=== PATIENT | female | born 1990 | race Caucasian/White ===

== ENCOUNTER 2021-10-22 16:23 | Emergency (ER) | payer OTHER, SELFPAY ==
[2021-10-22] VITALS (26 sets, daily range): BP systolic 100–130; BP diastolic 63–92; PULSE 59–82; RESP 10–21; TEMP 36.4–36.8; O2SAT 95–100
--- NOTE | ~2021-10-22 | XR_ITS ---
EXAMINATION: XR chest 2V DATE: 10/22/2021 19:00 INDICATION: Chest pain TECHNIQUE: PA and lateral views of the chest are obtained. COMPARISON: None available FINDINGS: The lungs are free of acute opacities. There is no pleural effusion or pneumothorax. The ca rdiomediastinal silhouette is normal. The visualized bones and soft tissues are unremarkable. IMPRESSION: 1. No acute cardiopulmonary abnormality. Reviewed, dictated and finalized at location F.
--- NOTE | ~2021-10-22 | CT_ITS ---
EXAMINATION: CT brain wo con INDICATION: Headache COMPARISON: None TECHNIQUE: Standard unenhanced head CT. The dose-length product (DLP) was 605.33 mGy-cm. The mA was a djusted according to patient size. Iterative reconstruction technique was employed. FINDINGS: There is no intracranial hemorrhage, acute infarction, or abnormal mass lesion. The ventric les are normal. There is no abnormal mass effect or midline shift. The bingham-white matter differentiat ion is normal. The basal cisterns are patent. The orbits are normal. The paranasal sinuses, mastoids and calvarium are normal. IMPRESSION: 1. No acute intracranial abnormality. Reviewed, dictated and finalized at location F.
--- NOTE | 2021-10-22 17:03 | ECG_ITS ---
Measurements Intervals [place] Rate: 66 P: 15 MD: 151 QRS: 15 QRSD: 87 T: 1 QT: 362 QTc: 382 Interpretive Statements SINUS RHYTHM NONSPECIFIC T-WAVE ABNORMALITY NO PREVIOUS ECG AVAILABLE FOR COMPARISON Electronically Signed On 10-22-2021 21:41:01 CDT by Tayo York M.D.
[2021-10-22 17:29] LABS: Basophils Percent Auto 0.4 % (0.2-1.2); Eosinophils Absolute Auto 0.1 K/mm3 (0-0.3); Eosinophils Percent Auto 1.4 % (0-4.4); Hematocrit 37.1 % (37.0-47.0); Hemoglobin 12.4 g/dL (12.0-15.0); Immature Granulocyte Absolute 0.01 K/mm3 (0.00-0.031); Immature Granulocyte Percent A 0.1 % (0-0.5); Lymphocytes Absolute Auto 2.54 K/mm3 (0.9-3.2); Lymphocytes Percent Auto 34.3 % (18.3-44.2); Mean Corpuscular HGB Conc 33.4 g/dl (32-36); Mean Corpuscular Hemoglobin 30.5 pg (26-34); Mean Corpuscular Volume 91.4 fl (80-100); Mean Platelet Volume 8.6 fl (7.4-10.4); Monocytes Absolute Auto 0.5 K/mm3 (0.1-0.6); Neutrophils Absolute Auto 4.2 K/mm3 (1.3-6.7); Neutrophils Percent Auto 56.8 % (45.5-73.1); Platelet Count Result 340 k/mm3 (150-375); Red Blood Count 4.06 M/mm3 (4.2-5.4); Red Cell Distribution Width 12.2 % (11.5-14.5); White Blood Count 7.4 K/mm3 (4.5-10.0)
[2021-10-22 17:31] LABS: Alanine Aminotransferase 30 U/L (6-35); Albumin Level 4.3 g/dL (3.5-5.1); Alkaline Phosphatase 66 U/L (38-126); Anion Gap 6 mmol/L (8-16); Aspartate Amino Transferase 25 U/L (14-36); Bilirubin,Total 0.2 mg/dL (0.2-1.3); Blood Urea Nitrogen 11 mg/dL (7-17); Calcium 9.5 mg/dL (8.4-10.2); Carbon Dioxide 29 mmol/L (22-30); Chloride 104 mmol/L (98-107); Estimated CRCL calculation 85 ml/min; Estimated Glomerular Filt Rate > 60; Glucose 91 mg/dL (65-110); Potassium 3.8 mmol/L (3.4-5.0); Sodium 139 mmol/L (137-145)
--- NOTE | 2021-10-22 18:56 | PC.NURSE ---
called lab and spoke with Aureliano to add on MG Trop 1 baseline PT INR PTT D [place] - [place] [id number]
[2021-10-22 19:19] LABS: Troponin I < 0.012 ng/mL (0.000-0.034)
[2021-10-22 19:54] LABS: INR 1.1; Prothrombin Time 13.6 Seconds (11.1-14.7)
--- NOTE | 2021-10-22 19:56 | ED.DIZZY ---
HPI - Dizziness General Chief Complaint: Syncope Stated Complaint: lightheaded/L-side numbness Time Seen by Provider: 10/22/21 18:07 Source: patient and RN notes reviewed Mode of arrival: ambulatory Limitations: no limitations History of Present Illness HPI Narrative: This is a 31 year old female who presents for evaluation of dizziness. Patient reports having intermittent episodes of dizziness 6-9 months. 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 She suddenly felt dizziness like she was going to pass out. She also reports she felt foggy in the head. She also reports having tightness to left neck and left shoulder . She also reports midsternal chest tightness. She also reported having left side headache that has resolved. She reports her symptoms have resolved except she feels foggy still. MD elicited complaint: dizziness and lightheadedness Review of Systems Review of Systems: All systems reviewed & are unremarkable except as noted in HPI and below Eyes: Eyes: Denies change in vision and Denies photophobia ENT: Reports dizziness and Denies nasal congestion Cardiovascular: Cardiovascular: Reports chest pain, Denies radiating jaw, neck or arm pain and Denies slow heart rate Respiratory: Respiratory: Denies chest congestion, Denies cough, Denies dyspnea and Denies wheezing Gastrointestinal: Gastrointestinal: Denies abdominal pain, Denies bloating, Denies nausea and Denies vomiting Neurologic: Reports dizziness and Reports headache(s) PMFSH Past Medical History Medical History (Updated 10/22/21 @ 21:26 by Teressa Oscar MD) Patient denies medical problems Surgical History Surgical History (Updated 10/22/21 @ 19:57 by Teressa Oscar MD) No pertinent past surgical history Social History Social History (Updated 10/22/21 @ 19:57 by Teressa Oscar MD) Smoking status: Current every day smoker Tobacco type: e-cigarettes/vaping Exam Narrative: GENERAL: Well-appearing, well-nourished, and in no acute distress. HEAD: Normocephalic, atraumatic EYES: PERRLA and EOMI, conjunctiva clear without discharge EARS: TM's clear bilaterally without erythema or dullness NOSE: Nares clear, no rhinorrhea or epistaxis THROAT:Mucous membranes moist, Oropharynx normal without erythema, exudate, peritonsillar swelling or fluctuance NECK: Supple, without lymphadenopathy or mass RESPIRATORY: No respiratory distress, Airway patent, Respirations non-labored, Clear to auscultation without rales, rhonchi or wheeze HEART: Regular rate and rhythm. No murmur heard. Normal peripheral pulses. ABDOMEN: Soft, nontender, nondistended, normal active bowel sounds. No masses. No rebound or guarding, No organomegaly. EXTREMITIES: No edema, normal strength with full range of motion. SKIN: Warm, dry, normal color without rash NEURO: Alert and oriented x3. CN 2-12 grossly intact. No focal deficits. PSYCH: Normal mood and affect. Course Reevaluation(s) Reevaluation #1: I discussed that test are unremarkable at this time. Her symptoms may be multifactorial . She may need further evaluation of her intermittent dizziness. She may have developed atypical chest pain from anxiety. She understands she will need follow up with PCP at this time. Date: 10/22/21 Time: 20:42 Vital Signs Vital signs: Vital Signs Temperature 98.0 F 10/22/21 16:57 Pulse Rate 79 10/22/21 16:57 Respiratory Rate 16 10/22/21 16:57 Blood Pressure 130/92 H 10/22/21 16:57 Pulse Oximetry 99 10/22/21 16:57 Temperature 98.3 F 10/22/21 18:07 Pulse Rate 65 10/22/21 19:45 Respiratory Rate 13 10/22/21 19:45 Blood Pressure 109/76 10/22/21 18:46 Pulse Oximetry 99 10/22/21 19:45 MDM - Dizziness Differential Diagnosis Differential diagnosis: Likely benign paroxysmal positional vertigo, orthostatic hypotension, cerebrovascular accident, acute vestibular neuronitis, transient cerebral isch
[2021-10-22 20:00] LABS: Amphetamine Screen Urine Negative (Negative); Barbiturate Screen Urine Negative (Negative); Benzodiazepines Screen Urine Negative (Negative); Cannabinoid Screen Urine Negative (Negative); Cocaine Screen Urine Negative (Negative); Methadone Screen Urine Negative (Negative); Opiate Screen Urine Negative (Negative); Phencyclidine Screen Urine Negative (Negative)
[2021-10-22 20:13] LABS: Appearance Urine Clear (Clear); Bilirubin Urine Negative (Negative); Blood Urine Negative (Negative); Glucose Urine UA Negative (Negative); Ketones Urine Negative (Negative); Leukocyte Esterase Ur Negative LEU/UL (Negative); Nitrate Urine Negative (Negative); Protein Urine Negative (Negative); Urobilinogen Urine 0.2 mg/dL (<2.0)
[2021-10-22 20:15] LABS: Add Urine Microscopic? NO; Color Urine Light Yellow (Yellow)
[2021-10-22 20:23] LABS: D Dimer < 0.27 ug/mL (<0.48)
[2021-10-22 21:10] LABS: Troponin I < 0.012 ng/mL (0.000-0.034)
== END 2021-10-22 21:32 | disposition home or self-care (01) ==
PROVIDERS: Emergency Medicine; Emergency Provider General Practice; PCP Registered Nurse
DX: R55 Syncope and collapse (principal); R07.89 Other chest pain; R94.31 Abnormal electrocardiogram [ECG] [EKG]
CPT/HCPCS: 36415; 70450; 71046; 80053; 80307; 81003; 81025; 83735; 84484; 85025; 85380; 85610; 85730; 93005; 99284

== ENCOUNTER 2023-01-22 17:53 | Emergency (ER) | payer OTHER, SELFPAY ==
--- NOTE | 2023-01-22 17:57 | ED.URI ---
HPI - URI/Sore Throat General Chief Complaint: Upper Respiratory Infection Stated Complaint: Cough;Headache Time Seen by Provider: 01/22/23 17:57 Source: patient, RN notes reviewed and old records reviewed Mode of arrival: ambulatory Limitations: no limitations History of Present Illness HPI Narrative: 32-year-old female presents to the [facility] with complaints of cough, congestion, headache that started yesterday morning. Low-grade fevers of 99. Has taken ibuprofen today. Took 1 dose of Mucinex. Related Data Home Medications Medication Instructions Recorded Confirmed No Home Medications 01/22/23 01/22/23 Allergies Allergy/AdvReac Type Severity Reaction Status Date / Time No Known Allergies Allergy Verified 01/22/23 17:58 Review of Systems Review of Systems: All systems reviewed & are unremarkable except as noted in HPI and below Constitutional: Constitutional: Reports no additional constitutional complaints Eyes: Eyes: Reports no additional eye complaints ENT: Reports as per HPI Cardiovascular: Cardiovascular: Reports no additional cardiovascular complaints, Denies chest pain and Denies dyspnea Respiratory: Respiratory: Reports no additional respiratory complaints, Denies chest congestion, Denies cough and Denies dyspnea Gastrointestinal: Gastrointestinal: Reports no additional gastrointestinal complaints, Denies abdominal pain, Denies nausea and Denies vomiting Musculoskeletal: Musculoskeletal: Reports no additional musculoskeletal complaints Integumentary/Breasts: Skin/Breast: Reports system reviewed and no additional complaints, except as docu Neurologic: Reports system reviewed and no additional complaints, except as documented Psychiatric: Psychiatric: Reports no additional psychiatric complaints Allergic/Immunologic: Allergic/Immunologic: Reports no additional allergic/immunologic complaints PMFSH Past Medical History Medical History Patient denies medical problems Surgical History Surgical History No pertinent past surgical history Social History Social History Smoking status: Current every day smoker Tobacco type: e-cigarettes/vaping Comments At the time of my signature, I reviewed and agree with the nursing past medical, surgical, social, and family history. There is no relevant family history pertinent to the patient complaint. Exam Const: General: cooperative, healthy appearing, comfortable, no acute distress, well developed, alert and well nourished Nutritional Appearance: well nourished Orientation/consciousness: patient oriented x3 Limitations: no limitations HENMT: Head: normal to inspection Ears: hearing grossly normal bilaterally, external ears normal, TM's normal bilaterally and EAC's normal Face/Nose/Sinus: Normal external nose present, Normal nares present, Normal nasal mucous membranes and turbinates present and normal facial exam Face and sinus: normal facial exam, sinuses nontender and face symmetric Mouth: Yes Normal oral and palatal mucosa present, Yes lip normal and Yes moist mucous membranes Throat: posterior oropharynx normal, uvula midline and postnasal drainage Eyes: General: appearance normal, both eyes and all related structures Alignment and Position: alignment normal Periorbital: periorbital findings normal Pupils: Equal, round and reactive pupils present EOM: EOMs intact bilaterally Neck: Neck: normal visual inspection, full ROM, no lymphadenopathy and no meningeal signs Chest: Chest palpation & inspection: normal inspection of the chest Resp: Effort & Inspection: normal respiratory effort and able to speak in complete sentences Auscultation: clear to auscultation bilaterally, no crackles, no rales, no rhonchi and no wheezes Cardio: Rate: regular rate Rhythm: regular rhythm Back/
[2023-01-22 18:04] VITALS: BP 121/82; PULSE 84; RESP 16; TEMP 36.4; O2SAT 100
== END 2023-01-22 18:32 | disposition home or self-care (01) ==
PROVIDERS: Emergency Provider Nurse Practitioner; PCP Registered Nurse
DX: J06.9 Acute upper respiratory infection, unspecified (principal); F17.290 Nicotine dependence, other tobacco product, uncomplicated; Z20.822 Contact with and (suspected) exposure to COVID-19
CPT/HCPCS: 87426; 87804; 99213; C9803; G0463

== ENCOUNTER 2023-05-13 08:09 | Emergency (ER) | payer OTHER, SELFPAY ==
[2023-05-13 08:18] VITALS: BP 117/65; PULSE 104; RESP 18; TEMP 36.8; O2SAT 100
--- NOTE | 2023-05-13 08:21 | ED.URI ---
HPI - URI/Sore Throat General Chief Complaint: Upper Respiratory Infection Stated Complaint: body aches Time Seen by Provider: 05/13/23 08:20 Source: patient Mode of arrival: ambulatory Limitations: no limitations History of Present Illness HPI Narrative: Janet is a 32-year-old female patient presenting to the clinic today with complaints of body aches, chills, fever, nasal congestion, and bilateral ear pain that started at 3:00 a.m. this morning. Temperature was as high as 100.5? F. elicited complaint: sore throat and nasal congestion Related Data Home Medications Medication Instructions Recorded Confirmed No Home Medications 01/22/23 05/13/23 Allergies Allergy/AdvReac Type Severity Reaction Status Date / Time No Known Allergies Allergy Verified 05/13/23 08:31 Review of Systems Review of Systems: Pertinent positives per HPI. Patient denies any rash, headache, visual changes, dizziness, shortness of breath, chest pain, palpitations, nausea, vomiting, diarrhea, constipation, abdominal pain, or any urinary issues. PMFSH Past Medical History Medical History Patient denies medical problems Surgical History Surgical History No pertinent past surgical history Social History Social History Smoking status: Current every day smoker Tobacco type: e-cigarettes/vaping Comments At the time of my signature, I reviewed and agree with the nursing past medical, surgical, social, and family history. There is no relevant family history pertinent to the patient complaint. Exam Narrative: General: Well-developed, well nourished, in no apparent distress Head: Normocephalic, atraumatic Eyes: Pupils equally round and reactive to light bilaterally, EOM intact, sclera and conjunctive clear, no discharge, lids normal Ears: TMs intact and clear, ear canals clear, no drainage, grossly hearing normal. Nose: Nares patent, clear nasal discharge, no inflammation, no sinus tenderness. Mouth: Oral pharynx without lesions or masses, good dentition, MMM. Neck: Supple, trachea midline, no enlargement of anterior or posterior cervical nodes, no thyroid masses or goiter palpable. Cardio: Regular rate and rhythm, s1 and s2 normal, no murmur appreciated. Resp: Clear to auscultation bilaterally, no rhonchi, rales, wheezing or rubs Course Course Emergency Course: Portions of this record may have been created with voice recognition software. Level of Care: Express Care Visit Vital Signs Vital signs: Vital Signs Temperature 36.8 C 05/13/23 08:18 Pulse Rate 104 H 05/13/23 08:18 Respiratory Rate 18 05/13/23 08:18 Blood Pressure 117/65 05/13/23 08:18 Pulse Oximetry 100 05/13/23 08:18 Oxygen Delivery Room Air 05/13/23 08:18 Temperature 36.8 C 05/13/23 08:18 Pulse Rate 104 H 05/13/23 08:18 Respiratory Rate 18 05/13/23 08:18 Blood Pressure 117/65 05/13/23 08:18 Pulse Oximetry 100 05/13/23 08:18 Oxygen Delivery Room Air 05/13/23 08:18 Vital signs reviewed MDM - URI/Sore Throat MDM Narrative Medical decision making narrative: At the time of visit patient is resting comfortably on the exam table. Patient appears to be nontoxic. COVID testing was positive. Influenza testing was negative. Supportive measures were discussed with the patient and they voiced understanding discharge instructions and agrees to treatment plan. Return precautions reviewed Differential Diagnosis Differential diagnosis: Likely upper respiratory infection, otitis media, sinusitis, viral infection, bronchitis, influenza, pharyngitis and other (COVID) Discharge Plan Discharge Clinical Impression: COVID-19 Patient Disposition: Home, Self-Care Condition: Stable Instructions: Antibiotic Form, COVID-19 (Coronavirus Dise
== END 2023-05-13 08:50 | disposition home or self-care (01) ==
PROVIDERS: Emergency Provider Nurse Practitioner Family; PCP Registered Nurse
DX: U07.1 COVID-19 (principal); F17.290 Nicotine dependence, other tobacco product, uncomplicated
CPT/HCPCS: 87426; 87804; 99213; C9803; G0463

== ENCOUNTER 2024-02-29 16:08 | Emergency (ER) | payer OTHER, SELFPAY ==
--- NOTE | 2024-02-29 16:10 | ED.FEMALEGU ---
HPI - Female Genitourinary General Chief complaint: Urogenital-Female Stated complaint: UTI Time Seen by Provider: 02/29/24 16:09 Source: patient Mode of arrival: ambulatory Limitations: no limitations History of Present Illness HPI Narrative: Janet is a 33-year-old female patient presenting to the clinic today with complaints possible UTI. She reports over the past few days she has had some burning, urgency, and frequency with urination. She also reports over the last couple weeks she has had foul smelling and cloudy urine. Is also complaining of some nausea and abdominal cramping. Denies any back pain, fevers, or chills. Related Data Home Medications Medication Instructions Recorded Confirmed buspirone 10 mg tablet 30 mg PO DAILY 02/29/24 02/29/24 Allergies Allergy/AdvReac Type Severity Reaction Status Date / Time No Known Allergies Allergy Verified 02/29/24 16:10 Review of Systems Review of Systems: Pertinent positives per HPI. Patient denies any fever, chills, rash, headache, visual changes, dizziness, cough, runny nose, sore throat, shortness of breath, chest pain, palpitations,vomiting, diarrhea, constipation, PMFSH Past Medical History Medical History Patient denies medical problems Surgical History Surgical History No pertinent past surgical history Social History Social History Smoking status: Current every day smoker Tobacco type: e-cigarettes/vaping Comments At the time of my signature, I reviewed and agree with the nursing past medical, surgical, social, and family history. There is no relevant family history pertinent to the patient complaint. Exam Narrative: General: Well-developed, well nourished, in no apparent distress. Head: Normocephalic, atraumatic. Cardio: Regular rate and rhythm, s1 and s2 normal, no murmur appreciated. Resp: Clear to auscultation bilaterally, no rhonchi, rales, wheezing or rubs. Abdomen: Soft, pliable, bowel sounds present in all quadrants, suprapubic-tender to palpation, no organomegly, no CVAT tenderness. Course Course Emergency Course: Portions of this record may have been created with voice recognition software. Level of Care: Express Care Visit Vital Signs Vital signs: Vital signs reviewed MDM - Female Genitourinary MDM Narrative Medical decision making narrative: At the time of visit patient is resting comfortably on the exam table. Patient appears to be nontoxic. Labs: Urinalysis positive for nitrates and leukocytes. We will send for culture. Plan: I suspect patient has urinary tract infection. Prescription for Bactrim DS was sent to the pharmacy. Supportive measures were discussed with the patient and they voiced understanding discharge instructions and agrees to treatment plan. Return precautions reviewed Differential Diagnosis Differential diagnosis: Likely urinary tract infection and cystitis Discharge Plan Discharge Clinical Impression: Urinary tract infection Qualifiers: Urinary tract infection type: acute cystitis Hematuria presence: without hematuria Qualified Code(s): N30.00 - Acute cystitis without hematuria Patient Disposition: Home, Self-Care Condition: Stable Instructions: Antibiotic Form, Urinary Tract Infection in Women (ED) Additional Instructions: Urinalysis positive for bacteria and nitrates. We will send urine for culture. Take Bactrim as prescribed Increase fluids and stay well hydrated Wipe front to back. May use wet wipes. Avoid tub baths If sexually active- pee before and after intercourse. Wear cotton panties Avoid tight clothing up against the genitals Follow up with your PCP in 1 week if symptoms persist. Prescriptions: New sulfamethoxazole-trimethoprim [Bactrim DS] 800-160 mg tablet
[2024-02-29 16:16] VITALS: BP 117/68; PULSE 77; RESP 16; TEMP 36.9; O2SAT 100
[2024-02-29 16:24] LABS: EDUAAPPEAR Cloudy; EDUABILI Negative (Negative); EDUABLOOD Negative (Negative); EDUACOLOR1 Yellow; EDUAGLUCOSE Negative (Negative); EDUAKETONE Negative (Negative); EDUALEUKO Trace (Negative); EDUANITRATE Positive (Negative); EDUAPROTEIN Negative (Negative); EDUASPGRAVITY 1.025; EDUAUROBILI 0.2
== END 2024-02-29 16:27 | disposition home or self-care (01) ==
PROVIDERS: Emergency Provider Nurse Practitioner Family; PCP Registered Nurse
DX: N30.00 Acute cystitis without hematuria (principal); B96.20 Unspecified Escherichia coli [E. coli] as the cause of diseases classified elsewhere; F17.290 Nicotine dependence, other tobacco product, uncomplicated
CPT/HCPCS: 81003; 87077; 87086; 87186; 99213; G0463

== ENCOUNTER 2024-04-24 17:02 | Emergency (ER) | payer OTHER, SELFPAY ==
--- NOTE | 2024-04-24 17:08 | ED_ITS ---
HPI - URI/Sore Throat General Chief Complaint: Upper Respiratory Infection Stated Complaint: fever and cough Time Seen by Provider: 04/24/24 17:08 Source: patient Mode of arrival: ambulatory Limitations: no limitations History of Present Illness HPI Narrative: Patient is a 33-year-old female who presents with fever and cough for a week. Patient van cellphone day for for COVID flu and both were negative. Patient has been taking [id number] medication with no relief. Fever was stain under 101. But today it was 102.5. Denies any nausea, vomiting, diarrhea, sore throat. Related Data Home Medications Medication Instructions Recorded Confirmed buspirone 10 mg tablet 30 mg PO DAILY 02/29/24 02/29/24 Allergies Allergy/AdvReac Type Severity Reaction Status Date / Time No Known Allergies Allergy Verified 04/24/24 17:41 Review of Systems Review of Systems: All systems reviewed & are unremarkable except as noted in HPI and below Constitutional: Constitutional: Denies body ache(s), Denies chills, Denies fatigue, Reports fever(s), Denies headache(s), Denies malaise and Denies weakness Eyes: Eyes: Denies blurry vision, Denies itchy eyes and Denies loss of vision ENT: Denies otalgia, Denies headache(s), Denies nasal congestion, Denies sinus pain and Denies sore throat Cardiovascular: Cardiovascular: Denies chest pain, Denies irregular heart rhythm and Denies dyspnea Respiratory: Respiratory: Reports cough and Denies dyspnea Gastrointestinal: Gastrointestinal: Denies abdominal pain, Denies diarrhea, Denies nausea and Denies vomiting Musculoskeletal: Musculoskeletal: Denies back pain, Denies myalgias and Denies arthralgias Integumentary/Breasts: Skin/Breast: Denies pruritus and Denies rash Neurologic: Denies headache(s), Denies loss of vision and Denies weakness Psychiatric: Psychiatric: Reports no additional psychiatric complaints Endocrine: Endocrine: Denies fatigue Allergic/Immunologic: Allergic/Immunologic: Denies itchy eyes PMFSH Past Medical History Medical History Patient denies medical problems Surgical History Surgical History No pertinent past surgical history Social History Social History Smoking status: Current every day smoker Tobacco type: e-cigarettes/vaping Comments At time of signature, agree with nursing past medical, surgical, social and family history. There is no relevant family history pertinent to the presenting complaint. Exam Const: General: cooperative, healthy appearing, comfortable, no acute distress and well nourished Nutritional Appearance: well nourished Orientation/consciousness: patient oriented x3 Limitations: no limitations HENMT: Head: normal to inspection, normocephalic and atraumatic Ears: hearing grossly normal bilaterally, external ears normal, TM's normal bilaterally, EAC's normal and no periauricular adenopathy Face/Nose/Sinus: Normal external nose present, Abnormal mucous membranes and turbinates present erythematous bilateral and diffuse, normal facial exam, sinuses nontender and face symmetric Face and sinus: normal facial exam, sinuses nontender and face symmetric Mouth: Yes Normal oral and palatal mucosa present, Yes lip normal, Yes tongue normal, Yes Normal salivary glands and ducts present, Yes oropharynx normal and Yes moist mucous membranes Teeth and gingiva: dentition normal Throat: posterior oropharynx normal, tonsils normal and uvula midline Eyes: General: appearance normal, both eyes and all related structures Alignment and Position: alignment normal and position normal Periorbital: periorbital findings normal Eyelids: eyelids normal Pupils: Equal, round and reactive pupils present Neck: Neck: normal visual inspection, full ROM, no lymphadenopathy and supple Chest: Chest palpation & inspection: normal inspection of the chest and normal palpation of entire chest wall Resp: Effort & Inspection: normal respiratory effort, able to speak in complete sentences and Actively coughing productive Auscultation: crackles (course) diffuse, no rales, no rhonchi and no wheezes Cardio: Rate: regular rate Rhythm: regular rhythm Heart sounds: S1 normal heart sound present and S2 normal heart sound present GI: Inspection: normal to inspection Skin: General skin exam: normal color and no rashes or lesions noted Neuro: General: patient oriented x3 and moves all extremities Cranial nerves: Yes Equal, round and reactive pupils present Speech: normal speech Gait exam (Neuro): Normal gait present Extrem: General: normal to inspection, full ROM and no edema Psych: Appearance: grossly normal and well kempt Mental Status: mental status grossly normal Speech and movement: Normal speech and movement present Affect: normal affect Attitude: cooperative Thought process: Normal thought process present Course Course Emergency Course: Patient is aware of diagnosis, understands and agrees to treatment plan. Anticipatory guidance given. Patient agrees to follow-up as directed and is aware of reasons to seek care at the emergency department. Portions of this record may have been created with voice recognition software Level of Care: Express Care Visit Vital Signs Vital signs: Vital Signs Temperature 38.7 C H 04/24/24 17:26 Pulse Rate 106 H 04/24/24 17:26 Respiratory Rate 18 04/24/24 17:26 Blood Pressure 120/68 04/24/24 17:26 Pulse Oximetry 100 04/24/24 17:26 Oxygen Delivery Room Air 04/24/24 17:26 Temperature 38.7 C H 04/24/24 17:26 Pulse Rate 106 H 04/24/24 17:26 Respiratory Rate 18 04/24/24 17:26 Blood Pressure 120/68 04/24/24 17:26 Pulse Oximetry 100 04/24/24 17:26 Oxygen Delivery Room Air 04/24/24 17:26 Reviewed MDM - URI/Sore Throat MDM Narrative Medical decision making narrative: Discharge instructions reviewed with patient, as well as provided in writing per nursing staff. The instructions also include specific and strict return/GO TO THE ER as well as f/u information. All questions have been answered, and the patient deny any further questions with discharge and discharge plan. Differential diagnosis considered: Burnett virus, strep pharyngitis, allergic rhinitis, upper respiratory tract infection, sinusitis, rhinosinusitis, nasopharyngitis. viral pharyngitis, otitis media, otitis externa, otitis effusion, foreign body, cerumen impaction, viral syndrome, and influenza.? Exam findings show no acute concerns or changes; patient is non-toxic appearing and is in no distress.? Patient is appropriate for outpatient treatment and follow- up.? Medical Records Attestation: I reviewed the patient's medical records. Discharge Plan Discharge Clinical Impression: Acute purulent bronchitis Patient Disposition: Home, Self-Care Condition: Stable Instructions: Acute Bronchitis (ED) Additional Instructions: Take antibiotic as prescribed. Take steroids in the morning with food. Use Tessalon Perles as needed for cough. Use inhaler with spacer as needed. Other symptomatic treatments include: -Alternate Tylenol and Motrin per package directions for fever or pain. -Antihistamine medication such as Benadryl at night and Zyrtec/Claritin/Ruth during the day can help improve symptoms. -Use Flonase twice a day for 5 days then daily to help reduce the inflammation and dry up your sinuses. -You can also use Sudafed or Mucinex. Be sure to drink plenty of water with these medications at least 8 ounces with every dose and it is important to drink 8 to 10 glasses of water per day. Water is a natural decongestant -Eat and drink things that are easy to swallow, like tea or soup, or popsicles. -Oral rinses such as: Salt water gargles and/or may use topical anesthetic (eg. Chloraseptic spray) or lozenges to relieve dryness or throat pain). -Frequent hand washing or hand computer consultant is one of the best ways to prevent spread of infection. -Using a vaporizer or humidifier at night will also help thin secretions and help with coughing up phlegm. -Follow up with primary care provider in 3-5 days if condition is not improving - For new or worsening symptoms go directly to the nearest ER Prescriptions: New prednisone 20 mg tablet 40 mg PO DAILY 5 Days Qty: 10 0RF amoxicillin 875 mg tablet 875 mg PO Q12H 7 Days Qty: 14 0RF benzonatate 100 mg capsule 100 mg PO BID PRN (Reason: cough) Qty: 14 0RF albuterol sulfate 90 mcg/actuation HFA aerosol inhaler 2 puff inhalation QID PRN (Reason: shortness of breath or wheezing) Qty: 6.7 0RF (DME) Aerochamber MV Spacer See Rx Instructions .Route Qty: 1 0RF Rx Instructions: As directed No Action buspirone 10 mg tablet 30 mg PO DAILY Follow-up/Referrals: Holly,RUDY Mcintosh [Primary Care Provider] - 3 Days Stand Alone Forms: Work/School Release IP Time of Disposition: 18:36
[2024-04-24 17:26] VITALS: BP 120/68; PULSE 106; RESP 18; TEMP 38.7; O2SAT 100
== END 2024-04-24 18:41 | disposition home or self-care (01) ==
PROVIDERS: Emergency Provider Nurse Practitioner Family; PCP Registered Nurse
DX: J20.9 Acute bronchitis, unspecified (principal); F17.290 Nicotine dependence, other tobacco product, uncomplicated
CPT/HCPCS: 99213; G0463

== ENCOUNTER 2025-05-14 14:40 | Emergency (ER) | payer OTHER, SELFPAY ==
--- NOTE | ~2025-05-14 | XR_ITS ---
EXAMINATION: XR chest 2V 05/14/2025 15:08 INDICATION: Chest pain PROCEDURE: 2 view chest COMPARISON: 10/22/2021 FINDINGS: The lungs are clear. The cardiomediastinal silhouette is within normal limits. There are no pleural effusions. There is no pneumothorax suspected. IMPRESSION: 1: NO ACUTE CARDIOPULMONARY DISEASE. Reviewed, dictated and finalized at [facility]
--- NOTE | 2025-05-14 14:41 | ECG_ITS ---
Test Date: 2025-05-14 14:45:42 Measurements Intervals [place] Rate: 80 P: -11 WI: 156 QRS: 39 QRSD: 76 T: 28 QT: 338 QTc: 392 Interpretive Statements SINUS RHYTHM BASELINE ARTIFACT- I, II, AVR NORMAL ECG No previous ECG available for comparison Electronically Signed On 05-14-2025 14:54:10 SAFETY PIN ASSEMBLING MACHINE OPERATOR by Giuseppe Aiken D.O.
[2025-05-14 14:52] VITALS: BP 109/75; PULSE 85; RESP 18; TEMP 36.7; O2SAT 99
[2025-05-14 14:59] LABS: Hematocrit 37.6 % (37.0-47.0); Hemoglobin 13.0 g/dL (12.0-15.0); Immature Granulocyte Percent A 0.2 % (0-0.5); Lymphocytes Absolute Auto 1.05 K/mm3 (0.9-3.2); Mean Corpuscular HGB Conc 34.6 g/dl (32-36); Mean Corpuscular Hemoglobin 31.9 pg (26-34); Mean Corpuscular Volume 92.2 fl (80-100); Nucleated Red Blood Cells Absolute Auto 0.000 K/mm3 (0.0-0.012); Nucleated Red Blood Cells Perc 0.0 % (0.0-0.2); Platelet Count Result 239 k/mm3 (150-375); Red Blood Count 4.08 M/mm3 (4.2-5.4); White Blood Count 4.1 K/mm3 (4.5-10.0)
[2025-05-14 15:11] LABS: INR 1.0; Prothrombin Time 12.9 Seconds (11.1-14.7)
[2025-05-14 15:12] LABS: Partial Thromboplastin Time 26.6 Seconds (22.3-36.8)
[2025-05-14 15:20] LABS: Alanine Aminotransferase 116 U/L (6-35); Albumin Level 4.3 g/dL (3.5-5.1); Alkaline Phosphatase 80 U/L (38-126); Anion Gap 7 mmol/L (4-12); Aspartate Amino Transferase 127 U/L (14-36); Bilirubin,Total 0.6 mg/dL (0.2-1.3); Blood Urea Nitrogen 14 mg/dL (7-17); Calcium 9.4 mg/dL (8.4-10.2); Carbon Dioxide 24 mmol/L (22-30); Chloride 104 mmol/L (98-107); Estimated CRCL calculation 64 ml/min; Estimated Glomerular Filt Rate > 60; Glucose 106 mg/dL (65-110); Lipase 104 U/L (23-300); Potassium 3.9 mmol/L (3.4-5.0); Sodium 135 mmol/L (137-145); Total Protein 7.5 g/dL (6.3-8.2)
[2025-05-14 15:27] LABS: Troponin I < 0.012 ng/mL (0.000-0.034)
--- OUTSIDE RECORDS SUMMARY | 2025-05-14 16:27 | XMS_ITS | Clinical Summary ---
Author Organization [facility] Address [address] [place] [address] Care Team Providers Care Credit Balance Specialist Name Role Phone Dayna Barrera Primary Care Provider Allergies No known active allergies Medications No known medications Active Problems Problem Noted Date Diagnosed Date Back pain with left-sided radiculopathy 10/01/19 19 Major depressive disorder in partial remission 0 09/30/2018 Anxiety 09/30/2018 Hiatal hernia 09/30/2018 Immunizations Immunization Administration Dates Next Due Influenza (Generic) 02/21/2019 Influenza Adult (Generic) 02/21/2019 MODERNA COVID-19 (12+) MRNA, LNP-S, PF, 100 MCG/ 0.5 ML DOSE 06/26/2020,05/29/2020 Tdap (Adacel) 11/02/2020 Tdap (Generic) 06/02/2011 Family History Medical History Relation Comments Allergies Daughter Asthma Daughter Hyperlipidemia Maternal Grandfather Migraines Maternal Grandmother Hypertension Mother ADD / ADHD Son Relation Status Comments Brother 1 Alive Brother 2 Alive Daughter Alive Father Alive Maternal Grandfather Alive Maternal Grandmother Alive Mother Alive Paternal Grandfather Other Paternal Grandmother Other Sister Alive Son Alive Social History Tobacco Use Types Packs/Day Years Used Date Smoking Tobacco: Former Cigarettes 1 07/16/2009 - 05/15/2016 Smokeless Tobacco: Current Alcohol Use Standard Drinks/Week Comments Yes 3.3 (1 standard drin k = 0.6 oz pure alcohol) 3 mixed drinks every other weekend AUDIT-C Answer Date Recorded Frequency of Alcohol Consumption 4 or more times a week 09/30/2018 Average Number of Drinks 3 or 4 019 Frequency of Binge Drinking Never 09/21 PHQ-2 Answer Date Recorded Patient Health Questionnaire-2 Score 0 10/07/2023 Comments No Sex and Gender Information Value Date Recorded Sex Assigned at Not on file Legal Sex Female 4:42 PM CDT Gender Identity Not on file Sexual Orientation Not on file Occupation Industry Job Start Date Job End Date [employer] [facility] All[facility] Not on file Not on fi le Not on file Last Filed Vital Signs Vital Sign Reading Time Taken Comments Blood Pressure 106/70 10/07/2023 2:41 PM CDT Pulse 78 10/07/2023 2:41 PM CDT Temperature 37.6 C (99.7 F) 10/07/2023 2:41 PM CDT Respiratory Rate 16 10/07/2023 2:41 PM CDT Oxygen Saturation 99% 10/07/2023 2:41 PM CDT Inhaled Oxygen Concentration - - Weight 55.2 kg (121 lb 12.8 oz) 10/07/2023 2:41 PM CDT Height 160 cm (5' 3) 10/07/2023 2:41 PM CDT Body Mass Index 21.58 10/07/2023 2:41 PM CDT Plan of Treatment Health Maintenance Due Date Last Done Comments Hepatitis B Vaccines (1 of 3 - 19+ 3-dose series) 2008 HPV Vaccines (1 - 3-dose SCD M series) 2016 Cervical Cancer Screening Pa p with HPV Testing (Age 30 to 64) Every 5 Years 10/22/2019 Cervical Cancer Screening Pa p Smear (Age 30 to 64) Every 3 Years 02/29/2024 02/28/2021 Cervical Cancer Screening wi th HPV 02/29/2024 PHQ-2 (Physician Humble) 05/24/2024 10/07/2023 Annual Physical 10/06/2024 10/07/2023, 02/28/2021 COVID-19 Vaccine ( - 2024-2 6 season) 2025 06/26/2020, 05/29/2020 Influenza Adult (#1) 2025 02/21/2019, 02/21/2019 DTaP, Tdap and Td Vaccines ( 3 - Td or Tdap) 11/02/2030 11/02/2020, 06/02/2011 Hepatitis C Completed 10/07/2023 Hepatitis A Vaccines Aged Out No long er eligible based on patient's age to complete this topic Meningococcal B Vaccine Aged Out No l onger eligible based on patient's age to complete this topic Meningococcal Vaccine Aged Out No maday he eligible based on patient's age to complete this topic Pneumococcal Vaccine: Pediatrics (0 to 5 Years) and At-Risk Patients (6 to 49 Years) Aged Out No longer eligible b ased on patient's age to complete this topic RSV Immunizations Under 20 Months Aged Out No longer eligible b ased on patient's age to complete this topic Procedures Procedure Name Priority Date/Time Associated Diagnosis Comments HEPATITIS C ANTIBODY Routine 10/07/2023 3:11 PM CDT Need for hepatitis C screening test from Last 3 Months or Most Recently Relevant to Health Maintenance Results * HEPATITIS C AB ([facility] ONLY) (10/07/2023 3:11 PM CDT) HEPATITIS C AB NON-REACTI VE NON-REACT DIAN 10/07/2023 10:27 PM CDT [facility] Comment: ANTIBODIES TO HCV NOT DETECTED. DOES NOT EXCLUDE THE POSSIBILITY OF EXPOSURE TO HCV. 10/07/2023 3:11 PM CDT Dayna [facility] Final Resul t [facility] [address] [place] [address], [id number] from Last 3 Months or Most Recently Relevant to Health Maintenance Insurance [facility] Care Teams Credit Balance Specialist Relationship Specialty Start Date End Date Dayna Barrera APNP [address] [place] [id number] PCP - General NURSE PRACTITIONER 09/30/18
--- OUTSIDE RECORDS SUMMARY | 2025-05-14 16:27 | XMS_ITS | Encounter Summary ---
Author Organization [facility] Address [address] [place] [address] Care Team Providers Care Bindery Helper Name Role Phone Dayna Barrera Primary Care Provider [phone] Encounter Details Date Type Department Care Team (Late st Contact Info) Description 04/21/2021 MyChart Message Enc [facility] Family & Internal Medicine [facility] [address] [place] [address] Dayna Barrera APNP [address] [place] [address] Back pain/upcoming appt Social History Tobacco Use Types Packs/Day Years Used Date Smoking Tobacco: Former Cigarettes Electronic Cigarettes Smokeless Tobacco: Current Alcohol Use Standard Drinks/Week Comments Yes 5 (1 standard drink = 0.6 oz pur e alcohol) 3 mixed drinks per night AUDIT-C Answer Date Recorded Frequency of Alcohol Consumption 4 or more times a week 09/30/2018 Average Number of Drinks 3 or 4 019 Frequency of Binge Drinking Never 09/21 PHQ-2 Answer Date Recorded PHQ-2 Score - If the patient scores above 3, please move on to questions 3-9 2 02/28/2021 Comments No Sex and Gender Information Value Date Recorded Sex Assigned at Not on file Legal Sex Female 4:42 PM CDT Gender Identity Not on file Sexual Orientation Not on file COVID-19 Exposure Response Date Recorded In the last month, have you been in contact with someone who was confirmed or suspected to have Coronavirus / COVID-19? No / Unsure 04/23/2021 9:46 AM CLINICAL CYTOGENETICIST SCIENTIST documented as of this encounter Plan of Treatment Not on file documented as of this encounter Visit Diagnoses Not on filedocumented in this encounter Additional Health Concerns Assessment Noted Time PHQ-9 Depression Total Score: 10 021 10:57 AM CDT documented as of this encounter Care Teams Bindery Helper Relationship Specialty Start Date End Date Dayna Barrera APNP [address] [place] [address] PCP - General NURSE PRACTITIONER 09/30/18 documented as of this encounter
--- OUTSIDE RECORDS SUMMARY | 2025-05-14 16:27 | XMS_ITS | Patient Health Record ---
Author Organization [facility] Address [address] [place], [place] [id number] Care Team Providers Care Production Control Technologist Name Role Phone Dayna Barrera Unavailable Unavailable Reason For Referral No Information Social History Social History Additional Details Category Social Info Options Details Migrated Social History Migrated Social History Alcohol intake : , History of tobacco use : , Smoking Status : Never used tobacco Plan Of Treatment No Information
--- OUTSIDE RECORDS SUMMARY | 2025-05-14 16:27 | XMS_ITS | Clinical Summary ---
Author Organization [facility] [place] Address [address] [place] [id number] Care Team Providers Care Grades 7 8 Tutor Name Role Phone Shannan Ordaz MD Primary Care Provider [phone] Allergies No known active allergies Medications esomeprazole (NexIUM) 40 mg Capsule, Delayed Release(E.C.)In dications:Dyspe psia Take 1 Capsule (40 mg) by mouth daily before breakfast. 30 Capsule 04/12/20 25 Active busPIRone (BUSPAR) 10 mg tabletIndicatio ns:ANDRE (generalized anxiety disorder) TAKE 1 TABLET(10 MG) BY MOUTH THREE TIMES DAILY 90 Tablet 05/02/20 25 Active propranoloL (INDERAL) 10 mg tabletIndicatio ns:Acute reaction to situational stress TAKE 1 TABLET(10 MG) BY MOUTH THREE TIMES DAILY NEEDED FOR ANXIETY 270 Tablet 1 05/10/20 25 Active clonazePAM (KlonoPIN RAPID DISSOLVE) 0.25 mg Tablet, Rapid DissolveIndicat ions:ANDRE (generalized anxiety disorder) DISSOLVE 1 TABLET(0.25 MG) ON THE TONGUE TWICE DAILY NEEDED FOR ANXIETY 5 Tablet 05/11/20 25 Active clonazePAM (KlonoPIN RAPID DISSOLVE) 0.25 mg Tablet, Rapid DissolveIndicat ions:ANDRE (generalized anxiety disorder) DISSOLVE 1 TABLET(0.25 MG) ON THE TONGUE TWICE DAILY NEEDED FOR ANXIETY 5 Tablet 04/04/20 25 025 Discontinued propranoloL (INDERAL) 10 mg tabletIndicatio ns:Acute reaction to situational stress Take 1 Tablet (10 mg) by mouth 3 times daily as needed for Other (See Comment) (anxiety). 90 Tablet 04/12/20 25 025 Discontinued busPIRone (BUSPAR) 10 mg tabletIndicatio ns:ANDRE (generalized anxiety disorder) Take 1-2 Tablets (10-20 mg) by mouth 3 times daily. 90 Tablet 04/12/20 25 025 Discontinued Active Problems Problem Noted Date Diagnosed Date ANDRE (generalized anxiety disorder) 01/09/2025 Resolved Problems Problem Noted Date Diagnosed Date Resolved Date Anxiety 09/30/2018 01/09/2025 Back pain with left-sided radiculopathy 09/30/2018 01/09/2025 Hiatal hernia 09/30/2018 01/09/2025 Encounters Date Type Department Care Team Description 05/11/2025 Refill [facility] [employer] [facility] [employer] [place] [address] [place] [address] Shannan Ordaz MD ANDRE (generalized anxiety disorder) 05/10/2025 Refill [facility] [employer] [facility] [employer] [place] [address] [place] [address] Shannan Ordaz MD Acute reaction to situational stress 05/02/2025 Refill [facility] [employer] [facility] [employer] [place] [address] [place] [address] Shannan Ordaz MD ANDRE (generalized anxiety disorder) 04/12/2025 1:00 PM PHOTOFLASH POWDER MIXER Office Visit [facility] [place] [address] [place] [address] Shannan Ordaz MD Acute reaction to situational stress (Primary Dx); ANDRE (generalized anxiety disorder); Dyspepsia 04/12/2025 Refill [facility] [employer] [place] [address] [place] [address] Shannan Ordaz MD Acute reaction to situational stress 04/03/2025 Refill [facility] [employer] [place] [address] [place] [address] Shannan Ordaz MD ANDRE (generalized anxiety disorder) 03/13/2025 External Device Data ST[facility] ABSTRACTION Provider, Abstract 02/14/2025 Refill [facility] [employer] [address] [place] [address] Shannan Ordaz MD ANDRE (generalized anxiety disorder) from Last 3 Months Immunizations Immunization Administration Dates Next Due (ADACEL/BOOSTRIX)(10 YR UP) TDAP VACCINE, 0.5ML, IM 11/02/2020,06/02/2011 Influenza, Unspecified Formulation 02/21/2019 Family History Medical History Relation Name Comments No Known Problems Brother 1 Migraines Brother 2 No Known Problems Father Asthma Half-Sister ADHD Maternal Grandmother Hypertension Mother Unknown Paternal Grandfather Unknown Paternal Grandmother No Known Problems Sister ADHD Son Relation Name Status Comments Brother 1 Alive Brother 2 Alive Daughter Alive Dyslexia Father Alive Half-Sister Alive Maternal Grandfather Alive Maternal Grandmother Alive Mother Alive Paternal Grandfather Other Paternal Grandmother Other Sister Alive Son Alive Social History Tobacco Use Types Packs/Day Years Used Date Smoking Tobacco: Former Cigarettes Tobacco Cessation:Counseling Given: Not Answered Alcohol Use Standard Drinks/Week Comments Yes 2 (1 standard drink = 0.6 oz pur e alcohol) - 2-3 mixed drinks on weekend Comments No Sex and Gender Information Value Date Recorded Sex Assigned at Not on file Legal Sex Female 10:20 AM PHOTOFLASH POWDER MIXER Gender Identity Not on file Sexual Orientation Not on file Last Filed Vital Signs Vital Sign Reading Time Taken Comments Blood Pressure 124/82 04/12/2025 1:04 PM PHOTOFLASH POWDER MIXER Pulse 76 04/12/2025 1:04 PM PHOTOFLASH POWDER MIXER Temperature 36.8 C (98.3 F) 04/12/2025 1:04 PM PHOTOFLASH POWDER MIXER Respiratory Rate 18 04/12/2025 1:04 PM PHOTOFLASH POWDER MIXER Oxygen Saturation 99% 04/12/2025 1:04 PM PHOTOFLASH POWDER MIXER Inhaled Oxygen Concentration - - Weight 60.9 kg (134 lb 3.2 oz) 04/12/2025 1:04 P M PHOTOFLASH POWDER MIXER Height 162.6 cm (5' 4) 04/12/2025 1:04 PM PHOTOFLASH POWDER MIXER Body Mass Index 23.04 04/12/2025 1:04 PM PHOTOFLASH POWDER MIXER Plan of Treatment Health Maintenance Due Date Last Done Comments HEPATITIS B VACCINES (1 of 3 - 19+ 3-dose series) 2008 HPV/Cotest (21-29) 2010 HPV/Cotest (30-65) 10/22/2019 INFLUENZA VACCINE (#1) 2024 COVID-19 Vaccine (2024-2 6 season) 2025 06/26/2020, 05/29/2020 CERVICAL CANCER SCREENING 02/07/2028 PAP SMEAR 02/07/2028 02/06/2025, 02/28/2021 DTAP/TDAP/TD VACCINES (3 - T d or Tdap) 11/02/2030 11/02/2020, 06/02/2011 Preventative Visit- Commercial Completed 0 02/06/2025, 01/09/2025, 10/07/2023, Additional history exists HPV VACCINES (No Doses Required) Completed Insurance ALLEGIANCE OPEN ACCESS ALLEGIANCE OPEN ACCESS Care Teams Grades 7 8 Tutor Relationship Specialty Start Date End Date Shannan Ordaz MD [address] [place] [id number] PCP - General Internal Medicine 12/04/24
--- OUTSIDE RECORDS SUMMARY | 2025-05-14 16:27 | XMS_ITS | Encounter Summary ---
Author Organization [facility] Address [address] [place] [address] Care Team Providers Care International Trade Teacher Name Role Phone Dayna Barrera Primary Care Provider [phone] Encounter Details Date Type Department Care Team (Late st Contact Info) Description 05/30/2021 [employer] Message Enc [facility] Family & Internal Medicine [facility] [address] [place] [address] Dayna Barrera APNP [address] [place] [address] MRI Report Social History Tobacco Use Types Packs/Day Years [...] have Coronavirus / COVID-19? No / Unsure 05/29/2021 12:26 PM CREDIT RELATIONSHIP MANAGER documented as of this encounter Plan of Treatment Not on file documented as of this encounter Visit Diagnoses Not on filedocumented in this encounter Additional Health Concerns Assessment Noted Time PHQ-9 Depression Total Score: 10 021 10:57 AM CDT documented as of this encounter Care Teams International Trade Teacher Relationship Specialty Start Date End Date Dayna Barrera APNP [address] [place] [address] PCP - General NURSE PRACTITIONER 09/30/18 documented as of this encounter
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
[2025-05-14 16:44] VITALS: BP 108/90; PULSE 74; RESP 20; O2SAT 100
[2025-05-14 16:45] VITALS: O2SAT 100
--- NOTE | 2025-05-14 17:42 | ECG_ITS ---
Test Date: 2025-05-14 17:45:04 Measurements Intervals [place] Rate: 66 P: -12 VA: 167 QRS: 42 QRSD: 75 T: 35 QT: 381 QTc: 402 Interpretive Statements SINUS RHYTHM NORMAL ECG Compared to ECG 05/14/2025 14:45:42 No significant changes Electronically Signed On 05-14-2025 20:16:38 PAPERHANGER APPRENTICE by Giuseppe Aiken D.O.
--- NOTE | 2025-05-14 18:00 | ED_ITS ---
HPI - General Adult General Chief complaint: Chest Pain Stated complaint: chest pain Time Seen by Provider: 05/14/25 16:57 History of Present Illness HPI narrative: 34-year-old female presents emergency department for evaluation for left-sided rib pain after having a fall into a bed frame on Wednesday night. Patient denies striking head denies loss consciousness. Patient does complain of worsening left-sided rib pain. Patient denies any associated shortness of breath but does have pain worsened with deep inspiration coughing and movement. Patient has been taking Tylenol and ibuprofen for pain control without significant results. Related Data Home Medications ?Medication ?Instructions ?Recorded ?Confirmed ?Last Taken ?Type buspirone 10 mg tablet 30 mg PO DAILY 02/29/2407/17 Unknown History Allergies Allergy/AdvReac Type Severity Reaction Status Date / Time No Known Allergies Allergy Verified 05/14/25 16:47 Review of Systems 2 Review of Systems: All systems reviewed & are unremarkable except as noted in HPI and below PMFSH Past Medical History Medical History Patient denies medical problems Surgical History Surgical History No pertinent past surgical history Social History Social History Smoking status: Current every day smoker Tobacco type: e-cigarettes/vaping Exam 2 Narrative: APPEARANCE: Well appearing, no pain, no distress, well-nourished. HEAD: normocephalic, atraumatic. EYES: PERRLA/EOMI, conjunctivae clear. NECK: Supple. No adenopathy, no masses. RESPIRATORY: Airway patent, respirations nonlabored. Clear to auscultation bilaterally, no rales, rhonchi, wheezing. CARDIOVASCULAR: Regular rate and rhythm without murmurs rubs or gallops. ABDOMINAL: no abdominal tenderness to palpation MUSCULOSKELETAL: reproducible left wall tenderness to palpation NEURO: Alert. Cranial nerves II through XII intact. Good gait. Good coordination SKIN: Warm, dry. Normal Color Course Vital Signs Vital signs: Vital Signs Temperature 98.1 F 05/14/25 14:52 Pulse Rate 85 05/14/25 14:52 Respiratory Rate 18 05/14/25 14:52 Blood Pressure 109/75 05/14/25 14:52 Pulse Oximetry 99 05/14/25 14:52 Temperature 98.1 F 05/14/25 14:52 Pulse Rate 76 05/14/25 18:34 Respiratory Rate 20 05/14/25 18:34 Blood Pressure 112/91 H 05/14/25 18:34 Pulse Oximetry 99 05/14/25 18:34 Oxygen Delivery Room Air 05/14/25 16:45 [facility] Narrative Medical decision making narrative: 34-year-old female presents emergency department for evaluation for left-sided rib pain. Patient is currently afebrile with no leukocytosis hemoglobin of 13.0. Patient has no significant acute abnormalities on her CMP and INR is 1.0. Patient denies any blood in her urine. Chest x-ray shows no acute cardiopulmonary abnormality. Lungs are clear to auscultation. Patient does have reproducible tenderness over her left-sided ribs but no abdominal or left CVA tenderness to palpation. Do suspect rib fracture versus rib contusion. Patient provided medication for pain control and symptom spirometer. Patient and family were updated the results of the workup and she was comfortable plan for discharge and close follow-up. Differential Diagnosis Differential Diagnosis: pneumonia, pneumothorax, pulmonary contusion, rib contusion, rib fracture, splenic injury, kidney injury Lab Data [facility] Lab Attestation statement: I personally reviewed the patient's lab results. 05/14/25 14:52 05/14/25 14:52 Labs: Lab Results 05/14/25 05/14/25 Range/Units 14:52 17:42 WBC 4.1 L (4.5-10.0) K/mm3 RBC 4.08 L (4.2-5.4) M/mm3 Hgb 13.0 (12.0-15.0) g/dL Hct 37.6 (37.0-47.0) % MCV 92.2 (80-100) fl MCH 31.9 (26-34) pg MCHC 34.6 (32-36) g/dl RDW 12.8 (11.5-14.5) % Plt Count 239 (150-375) k/mm3 MPV 8.2 (7.4-10.4) fl Immature Gran % (Auto) 0.2 (0-0.5) % Neut % (Auto) 57.3 (45.5-73.1) % Lymph % (Auto) 25.5 (18.3-44.2) % [place] % (Auto) 15.3 H (2.6-8.5) % Eos % (Auto) 1.2 (0-4.4) % Baso % (Auto) 0.5 (0.2-1.2) % Lymph # (Auto) 1.05 (0.9-3.2) K/mm3 [place] # (Auto) 0.6 (0.1-0.6) K/mm3 Eos # (Auto) 0.1 (0-0.3) K/mm3 Baso # (Auto) 0.0 (0.0-0.1) K/mm3 Abs Immat Gran (auto) 0.01 (0.00-0.031) K/mm3 Absolute Neuts (auto) 2.4 (1.3-6.7) K/mm3 Absolute Nucleated RBC 0.000 (0.0-0.012) K/mm3 Nucleated RBC % 0.0 (0.0-0.2) % PT 12.9 (11.1-14.7) Seconds INR 1.0 APTT 26.6 (22.3-36.8) Seconds Sodium 135 L (137-145) mmol/L Potassium 3.9 (3.4-5.0) mmol/L Chloride 104 (98-107) mmol/L Carbon Dioxide 24 (22-30) mmol/L Anion Gap 7 (4-12) mmol/L BUN 14 (7-17) mg/dL Creatinine 0.89 (0.7-1.0) mg/dL Estim Creat Clear Calc 64 ml/min Estimated GFR > 60 (59 - ) Glucose 106 (65-110) mg/dL Calcium 9.4 (8.4-10.2) mg/dL Total Bilirubin 0.6 (0.2-1.3) mg/dL AST 127 H (14-36) U/L ALT 116 H (6-35) U/L Alkaline Phosphatase 80 (38-126) U/L Troponin I < 0.012 < 0.012 (0.000-0.034) ng/mL Total Protein 7.5 (6.3-8.2) g/dL Albumin 4.3 (3.5-5.1) g/dL Lipase 104 (23-300) U/L Imaging Data Radiologist's impression: ITS Impressions Chest X-Ray 05/14/25 15:13 IMPRESSION: 1: NO ACUTE CARDIOPULMONARY DISEASE. Discharge Plan Discharge Clinical Impression: Fracture of rib Patient Disposition: Home Condition: Stable Instructions: Antibiotic Form, How to Use an Incentive Spirometer (ED), Rib Fracture (ED) Additional Instructions: ibuprofen for pain control. [place] as needed for additional pain control. Flexeril for muscle spasm. Incentive spirometer as directed. Have close follow-up with your primary care physician. If you have any worsening symptoms then please call or return to the emergency department. Patient Language: Lithuanian Prescriptions: New cyclobenzaprine 10 mg tablet 10 mg PO BID PRN (Reason: muscle spasm) Qty: 14 0RF hydrocodone-acetaminophen 5-325 mg tablet 1 tablet PO Q12H PRN (Reason: pain) Qty: 14 0RF No Action prednisone 20 mg tablet 40 mg PO DAILY 5 Days Qty: 10 0RF amoxicillin 875 mg tablet 875 mg PO Q12H 7 Days Qty: 14 0RF benzonatate 100 mg capsule 100 mg PO BID PRN (Reason: cough) Qty: 14 0RF albuterol sulfate 90 mcg/actuation HFA aerosol inhaler 2 puff inhalation QID PRN (Reason: shortness of breath or wheezing) Qty: 6.7 0RF (DME) Aerochamber MV Spacer See Rx Instructions .Route Qty: 1 0RF Rx Instructions: As directed buspirone 10 mg tablet 30 mg PO DAILY Follow-up/Referrals: Holly,RUDY Mcintosh [Non-Staff]
[2025-05-14 18:14] LABS: Troponin I < 0.012 ng/mL (0.000-0.034)
[2025-05-14] MEDS: CYCLOBENZAPRINE HCL 10 MG TABLET PO (18:31)
[2025-05-14] MEDS: KETOROLAC 30 MG/ML VIAL (*BKC) IM (18:31)
[2025-05-14] MEDS: HYDROcodone/acetaminophen (*CRX) 7.5-325 MG TABLET 1 TAB PO (18:31)
[2025-05-14 18:34] VITALS: BP 112/91; PULSE 76; RESP 20; O2SAT 99
== END 2025-05-14 18:39 | disposition home or self-care (01) ==
LOC: ANHED 18:19
PROVIDERS: Emergency Provider Emergency Medicine; PCP Internal Medicine
DX: S22.32XA Fracture of one rib, left side, initial encounter for closed fracture (principal); F17.290 Nicotine dependence, other tobacco product, uncomplicated; W19.XXXA Unspecified fall, initial encounter
CPT/HCPCS: 36415; 71046; 80053; 83690; 84484; 85025; 85610; 85730; 93005; 96372; 99284; A9270; J1885